=== PATIENT | male | born 1985 | race Two or more races ===

== ENCOUNTER 2018-06-10 19:05 | Emergency (ER) | payer MEDICAID ==
[~2018-06-10] VITALS: Ht 167.6 cm; Wt 80.0 kg
[2018-06-10] MEDS ORDERED: PENICILLIN V POTASSIUM 250MG TABLET PO ONE (20:45)
[2018-06-10] MEDS ORDERED: HYDROCODONE/ACETAMINOPHEN 5/325MG TABLET PO ONE (20:45)
[2018-06-10 21:52] VITALS: BP 139/81
== END 2018-06-10 21:53 | disposition home or self-care (01) ==
LOC: ER 19:05
DX: K04.7 Periapical abscess without sinus (principal); F20.9 Schizophrenia, unspecified
CPT/HCPCS: 99283

== ENCOUNTER 2019-05-23 16:07 | Emergency (ER) | payer MEDICAID ==
[~2019-05-23] VITALS: Ht 167.6 cm; Wt 81.0 kg
[2019-05-23 16:54] VITALS: BP 137/82
[2019-05-23] MEDS ORDERED: IBUPROFEN 600MG TABLET PO ONE (17:30)
[2019-05-23] MEDS ORDERED: AMOXICILLIN 500 MG CAPSULE PO ONE (17:45)
== END 2019-05-23 18:12 | disposition home or self-care (01) ==
LOC: ER 16:07
DX: K13.70 Unspecified lesions of oral mucosa (principal)
CPT/HCPCS: 99283